=== PATIENT | male | born 1960 | race Caucasian/White ===

== ENCOUNTER 2023-11-17 07:48 | Emergency (ER) | payer MEDICAID ==
[~2023-11-17] VITALS: Ht 170.2 cm; Wt 81.8 kg
[2023-11-17 07:59] VITALS: TEMP 98.5; O2SAT 100
[2023-11-17 08:15] LABS: BASOPHILS % 0.7 % (0.0-2.0); EOSINOPHILS % 4.4 % (0.0-5.0); HEMATOCRIT. 45.7 % (42.0-52.0); HEMOGLOBIN. 15.5 g/dL (14.0-18.0); LYMPHOCYTES % 27.7 % (20.0-50.0); MEAN CORPUSCULAR HEMOGLOBIN 28.8 pg (28.0-32.0); MEAN CORPUSCULAR HGB CONC 33.8 g/dL (31.0-37.0); MEAN PLATELET VOLUME 7.9 fl (7.4-10.4); MONOCYTES % 8.9 % (2.0-8.0); NEUTROPHILS % 58.3 % (40.0-76.0); PLATELET 192 x1000/uL (130-400); RED BLOOD CELL COUNT 5.38 mill/uL (4.7-6.1); RED CELL DISTRIBUTION WIDTH 12.8 % (11.6-14.6); WHITE BLOOD COUNT 6.1 x1000/uL (4.5-11.0)
[2023-11-17 08:28] LABS: CALCIUM 9.1 mg/dL (8.7-10.4); CARBON DIOXIDE 22 mEq/L (21-32); CHLORIDE 108 mEq/L (98-107); CREATININE 0.9 mg/dL (0.6-1.3); GLUCOSE 124 mg/dL (70-105); POTASSIUM 3.8 mEq/L (3.5-5.1); SODIUM 137 mEq/L (136-145); TROPONIN I HIGH SENSITIVITY 4 ng/L (3.0-53); UREA NITROGEN BLOOD 13 mg/dL (9-23)
[2023-11-17] MEDS ORDERED: MECLIZINE 25MG TABLET PO ONE (09:15)
[2023-11-17] MEDS ORDERED: MECL-299 MT (09:15)
[2023-11-17] MEDS ORDERED: ONDA4TAB11 PO (09:15)
[2023-11-17] MEDS: MECLIZINE 12.5MG TABLET PO NR (09:48)
[2023-11-17 09:56] VITALS: BP 141/87; PULSE 87; RESP 16
== END 2023-11-17 09:59 | disposition home or self-care (01) ==
LOC: ER 07:48
DX: R42 Dizziness and giddiness (principal)
CPT/HCPCS: 99285; 71045; 80048; 82962; 85025; 84484; 36415; 93005; J8597

== ENCOUNTER 2024-09-02 18:25 | Emergency (ER) | payer MEDICAID, OTHER ==
[~2024-09-02] VITALS: Ht 167.6 cm; Wt 82.0 kg
[~2024-09-02 18:25] MED LIST: MECL-299 MT; ONDA-239 PO
[2024-09-02 19:46] VITALS: BP 131/99; PULSE 107; RESP 20; TEMP 98; O2SAT 98
[2024-09-02] MEDS: TETRACAINE 0.5% OPHTH DROPS 4ML EACHEYE ONE (21:00)
[2024-09-02] MEDS: FLUORESCEIN SODIUM 1MG/STRIP EACHEYE ONE (21:00)
[2024-09-02] MEDS ORDERED: MOXI3DRO12 RIGHTEYE (22:34)
== END 2024-09-02 22:40 | disposition home or self-care (01) ==
LOC: ER 18:25
DX: T15.91XA Foreign body on external eye, part unspecified, right eye, initial encounter (principal); W44.8XXA Other foreign body entering into or through a natural orifice, initial encounter; Y93.89 Activity, other specified; Y92.89 Other specified places as the place of occurrence of the external cause; Y99.8 Other external cause status
CPT/HCPCS: 65205; 99284